=== PATIENT | female | born 1960 | race Hispanic/Latino ===

== ENCOUNTER 2022-05-25 09:08 | Observation (INO) | payer MEDICAID ==
[2022-05-23 13:10] LABS: BASOPHILS % (AUTO) 0.8 % (0.0-5.0); EOSINOPHILS % (AUTO) 1.8 % (0.0-8.0); HEMATOCRIT 39.6 % (36-48); LYMPHOCYTES % (AUTO) 36.5 % (21.0-51.0); MEAN CORPUSCULAR HEMOGLOBIN 31.4 pg (27.0-33.0); MEAN CORPUSCULAR HGB CONC 34.6 g/dL (32.0-36.0); MEAN CORPUSCULAR VOLUME 90.6 fL (79-99); MONOCYTES % (AUTO) 7.8 % (3.0-13.0); NEUTROPHILS % (AUTO) 52.6 % (40.0-77.0); PLATELET COUNT (AUTO) 198 K/uL (130-400); RED BLOOD CELL COUNT(AUTO) 4.37 MIL/uL (4.00-5.50); RED CELL DISTRIBUTION WIDTH 12.6 % (11.0-15.5)
[2022-05-23 13:20] LABS: CREATININE 0.8 mg/dL (0.5-1.5); POTASSIUM 3.7 mmol/L (3.5-5.1)
[2022-05-23 13:22] LABS: PROTHROMBIN TIME 10.9 SEC (9.6-11.6)
[2022-05-24 09:24] VITALS: BP 128/85
[2022-05-25] VITALS (10 sets, daily range): BP systolic 96–166; BP diastolic 58–78
[~2022-05-25] VITALS: Ht 147.3 cm; Wt 8.0 kg
[~2022-05-25 09:08] MED LIST: 0.9%NACL 1000ML 1,000 ML IV SCH; ACET-2743 PO; ALBU8.5H8 IH; ASPI-1443 PO; BACL10TA PO; DICY10CA13 PO; DULA3PEN SQ; EZET10TA48 PO; FURO40TA5 PO; INSLAN SQ; ISOS60TA77 PO; LISI20TA24 PO; LOPE2TAB26 PO; METO-408 PO; NITR0.4T50 SL; PANT40TA54 PO; PHEN-460 PO; VANCOMYCIN 1G/250ML KIT 250 ML IV PRN; [UNRECOGNIZED DRUG - OTHER] PO
[2022-05-25] MEDS ORDERED: MV-M1TAB20 PO (11:03)
[2022-05-25] MEDS ORDERED: DULA1.5P SQ (11:03)
[2022-05-25] MEDS ORDERED: BUPIVACAINE/PF 0.25% 30ML VIAL IJ ONE (15:20)
[2022-05-25] MEDS ORDERED: LIDOCAINE HCL-MPF 2% 10ML AMP IJ ONE (15:21)
[2022-05-25] MEDS ORDERED: MIDAZOLAM HCL 1 MG/ML 2ML VIAL ONE ×3 (15:21→17:26)
[2022-05-25] MEDS ORDERED: IOHEXOL-350 75 ML VIAL IV ONE (15:21)
[2022-05-25] MEDS ORDERED: CEFAZOLIN SODIUM 1 GM VIAL ONE (15:21)
[2022-05-25] MEDS ORDERED: MEPERIDINE-PF 25 MG/ML SYG ONE ×2 (15:22→15:59)
[2022-05-25] MEDS ORDERED: VANCOMYCIN 1G/250ML KIT 250 ML IV ONE (15:50)
[2022-05-25] MEDS ORDERED: DEXTROSE 50%-WATER 50 ML DISP.SYRIN IV PRN (18:30)
[2022-05-25] MEDS ORDERED: NITROGLYCERIN 0.4 MG SL TAB SL PRN (18:30)
[2022-05-25] MEDS ORDERED: LOPERAMIDE HCL 2 MG CAP PO PRN (18:30)
[2022-05-25] MEDS ORDERED: ACETAMINOPHEN 500 MG TABLET PO PRN (18:30)
[2022-05-25] MEDS ORDERED: GLUCAGON 1MG KIT 1 MG ML IM PRN (18:30)
[2022-05-25] MEDS: PHENYTOIN SODIUM 100 MG ERCAP PO SCH (20:26)
[2022-05-25] MEDS: BACLOFEN 10 MG TABLET PO SCH (20:26)
[2022-05-25] MEDS: INSULIN HUMULIN R 100 UNIT/ML 3ML SQ SCH (20:27)
[2022-05-25] MEDS: INSULIN GLARGINE 100 UNITS/ML 10 ML VIAL SQ SCH (20:30)
[2022-05-25] MEDS: PHENYTOIN SODIUM PO SCH (20:32)
[2022-05-26] MEDS: ACETAMINOPHEN WITH CODEINE 1 TAB TAB PO PRN ×3 (01:38→22:25)
[2022-05-26 04:00] VITALS: BP 114/69
[2022-05-26] MEDS: INSULIN HUMULIN R 100 UNIT/ML 3ML SQ SCH ×4 (05:44→20:53)
[2022-05-26 08:00] VITALS: BP 124/71
[2022-05-26] MEDS: EZETIMIBE 10 MG TAB PO SCH (08:16)
[2022-05-26] MEDS: METOPROLOL SUCCINATE 25 MG TAB.SR.24H PO SCH (08:16)
[2022-05-26] MEDS: ISOSORBIDE MONO 60MG SR TAB PO SCH (08:17)
[2022-05-26] MEDS: FUROSEMIDE 40 MG TABLET PO SCH (08:17)
[2022-05-26] MEDS: LISINOPRIL 20 MG TABLET PO SCH (08:17)
[2022-05-26] MEDS: PANTOPRAZOLE 40 MG TAB DR PO SCH (08:17)
[2022-05-26] MEDS: ASPIRIN 81 MG EC TAB PO SCH (08:17)
[2022-05-26] MEDS: BACLOFEN 10 MG TABLET PO SCH ×2 (08:18→21:38)
[2022-05-26] MEDS: INSULIN GLARGINE 100 UNITS/ML 10 ML VIAL SQ SCH ×2 (08:19→21:42)
[2022-05-26] MEDS ORDERED: MV MN PO SCH (09:00)
[2022-05-26] MEDS ORDERED: [UNRECOGNIZED DRUG - OTHER] PO SCH (09:00)
[2022-05-26] MEDS ORDERED: IRON PO SCH (09:00)
[2022-05-26] MEDS ORDERED: HERBAL CMPLX PO SCH (09:00)
[2022-05-26 12:00] VITALS: BP 114/68
[2022-05-26 19:45] VITALS: BP 116/57
[2022-05-26] MEDS: PHENYTOIN SODIUM PO SCH (21:38)
[2022-05-26] MEDS: PHENYTOIN SODIUM 100 MG ERCAP PO SCH (21:38)
[2022-05-26 23:30] VITALS: BP 112/60
[2022-05-27 04:00] VITALS: BP 126/69
[2022-05-27] MEDS: INSULIN HUMULIN R 100 UNIT/ML 3ML SQ SCH ×3 (06:19→16:30)
[2022-05-27 08:00] VITALS: BP 143/76
[2022-05-27] MEDS: BACLOFEN 10 MG TABLET PO SCH (09:45)
[2022-05-27] MEDS: ISOSORBIDE MONO 60MG SR TAB PO SCH (09:46)
[2022-05-27] MEDS: METOPROLOL SUCCINATE 25 MG TAB.SR.24H PO SCH (09:47)
[2022-05-27] MEDS: LISINOPRIL 20 MG TABLET PO SCH (09:47)
[2022-05-27] MEDS: PANTOPRAZOLE 40 MG TAB DR PO SCH (09:47)
[2022-05-27] MEDS: EZETIMIBE 10 MG TAB PO SCH (09:47)
[2022-05-27] MEDS: ASPIRIN 81 MG EC TAB PO SCH (09:47)
[2022-05-27] MEDS: FUROSEMIDE 40 MG TABLET PO SCH (09:48)
[2022-05-27] MEDS: ACETAMINOPHEN WITH CODEINE 1 TAB TAB PO PRN (10:08)
[2022-05-27] MEDS: INSULIN GLARGINE 100 UNITS/ML 10 ML VIAL SQ SCH (10:12)
[2022-05-27 12:13] VITALS: BP 116/65
[2022-05-27 16:24] VITALS: BP 118/58
[2022-05-30] MEDS ORDERED: DULAGLUTIDE 1.5 MG SQ SCH (09:00)
== END 2022-05-27 18:07 | disposition home or self-care (01) ==
LOC: DAH 09:08 → DAHIP 09:09 → UNDOADMOB 18:22 → DAH 18:22 → 2DH 18:42 → DAHIP 18:42 → 2DH 19:11
PROVIDERS: ADMIT Internal Medicine Cardiovascular Disease; ATTEND Internal Medicine Cardiovascular Disease
DX: I42.0 Dilated cardiomyopathy (principal); I11.0 Hypertensive heart disease with heart failure; I50.22 Chronic systolic (congestive) heart failure; I25.10 Atherosclerotic heart disease of native coronary artery without angina pectoris; Z95.0 Presence of cardiac pacemaker; K58.0 Irritable bowel syndrome with diarrhea; Z79.899 Other long term (current) drug therapy
CPT/HCPCS: 80048; 84703; 85025; 85610; 85730; 36415; 93005 ×3; 33999; 33264; 96372 ×3; 96365; 96366; 82948 ×9; 71045; C1769; C1898; C1882; G0378 ×48; S0020; J2250 ×3; J3370; J1815 ×3; J2175 ×2; J3490; Q9967; A4215 ×2; A4223 ×3; A4222; A4221; A4663; A4216; A4606; 33249; 99156; 99157; J0690